=== PATIENT | male | born 1980 | race Caucasian/White ===

== ENCOUNTER 2017-02-25 04:13 | Emergency (ER) | payer SELFPAY ==
[~2017-02-25] VITALS: Ht 160 cm; Wt 68.0 kg
[2017-02-25 06:23] VITALS: BP 152/85
[2017-02-25] MEDS ORDERED: PENICILLIN G BENZATHINE 1,200,000 UNITS/2ML SYR IM ONE (07:30)
== END 2017-02-25 08:06 | disposition home or self-care (01) ==
LOC: ER 07:27
DX: J03.90 Acute tonsillitis, unspecified (principal); F17.210 Nicotine dependence, cigarettes, uncomplicated; F12.10 Cannabis abuse, uncomplicated
CPT/HCPCS: 96372; 99283; J0561; Z7610